=== PATIENT | female | born 1975 | race Caucasian/White ===

== ENCOUNTER → 2020-10-06 | Outpatient (CLI) | payer BC ==
[2006-03-03 07:35] VITALS: TEMP 97.9
[~2020-10-06] MED LIST: BCP TD; FLEXERIL10 MG PO; LANTUS100 U/ML SC; LORTAB 5/500 501 TAB PO; NORCO 325 MG-51 TAB PO; NOVOLOG 100U100 U/M1 SC; PERCOCET 325 MG1 TA2 PO; PRENATAL VITA1 UDTAB PO; PROZAC 20MG20 MG PO; SLOW FE45 MG PO; STOOL SOFTENER100 M2 PO; XANAX0.5 MG PO
== END ==
LOC: COL.RAD 10:01
DX: R19.00 Intra-abdominal and pelvic swelling, mass and lump, unspecified site (principal)
CPT/HCPCS: Q9967

== ENCOUNTER → 2021-06-07 | Outpatient (CLI) | payer BC ==
[2006-03-03 07:35] VITALS: TEMP 97.9
== END ==
LOC: MC.RAD 12:50
DX: Z12.31 Encounter for screening mammogram for malignant neoplasm of breast (principal)